=== PATIENT | female | born 1970 | race Caucasian/White ===

== ENCOUNTER 2018-04-20 14:50 | Emergency (ER) | payer MEDICAID ==
[~2018-04-20] VITALS: Ht 154.9 cm; Wt 49.0 kg
[2018-04-20 15:08] VITALS: BP 143/89; PULSE 92; RESP 20; Ht 154.9 cm; Wt 49.0 kg
[2018-04-20] MEDS ORDERED: IBUP-1542 PO (20:11)
--- NOTE | 2018-04-21 02:47 | ERD ---
ER Documentation Chief Complaint Chief Complaint c/o right foot pain x1 week, fell about a week ago HPI 47-year-old female presents for right ankle and foot pain times 1 week. She states that she was going down some steps and stepped the wrong way on the last step and twisted her ankle. Pain noted to be 9 out of 10. She states that the pain is worse with walking. There is swelling noted. She took some Advil and Tylenol at home which helped moderately with the pain. She denies fevers or chills. Denies chest pain or shortness of breath. No head trauma noted. ROS All systems reviewed and are negative except as per history of present illness. Medications Home Meds Active Scripts Ibuprofen* (Motrin*) 600 Mg Tab, 600 MG PO Q6H PRN for PAIN AND OR ELEVATED TEMP, #30 TAB Prov:DANISH LUNDY DO 04/20/18 PMhx/Soc Medical and Surgical Hx: pt denies Medical Hx, pt denies Surgical Hx Hx Alcohol Use: No Hx Substance Use: No Hx Tobacco Use: No Smoking Status: Never smoker Physical Exam Vitals Vital Signs Date Temp Pulse Resp B/P (MAP) Pulse Ox O2 O2 Flow FiO2 Time Delivery Rate 04/20/18 98.7 92 20 143/89 99 15:08 (107) Physical Exam Const: No acute distress Resp: Clear to auscultation bilaterally Cardio: Regular rate and rhythm, no murmurs, bilateral radial and dorsalis pedis pulses intact, cap refill less than 2 seconds in all toes of the right foot Abd: Soft, non tender, non distended. Normal bowel sounds Skin: No petechiae or rashes Back: No midline or flank tenderness Ext: Right ankle swelling noted, tenderness to palpation over the lateral malleoli area. There is decreased range of motion. Neur: Awake and alert, bilateral lower extremity sensation intact, sensation intact in all toes of the right foot Psych: Normal Mood and Affect Procedures/MDM Splint Note Type: Right posterior leg splint Location: Right foot Indication: Avulsion type fracture of the lateral cuboid Splint Assessment: Neurovascularly intact post splint placement with good fit. Medical Decision Making: Differential diagnosis includes but not limited to right ankle sprain, dislocation, fracture. Patient appeared well if his examination. There was right ankle swelling and tenderness palpation of the lateral malleolar area. Right ankle x-ray was unremarkable Right foot x-ray showed minimally-displaced avulsion type fracture at the lateral cuboid with adjacent soft tissue swelling. Right foot was placed in a posterior leg splint Patient also was provided with crutches Patient given prescription for Motrin for pain. Advised to follow with orthopedic surgery. Patient given information to follow- up with orthopedic surgery. Patient advised to follow up with PCP in 1-2 days. Patient advised to return to ED for new or worsening symptoms. Patient stable on discharge from the ED. Disclaimer: Inadvertent spelling and grammatical errors are likely due to EHR/dictation software use and do not reflect on the overall quality of patient care. Also, please note that the electronic time recorded on this note does not necessarily reflect the actual time of the patient encounter. Departure Diagnosis: Primary Impression: Foot fracture Condition: Fair Patient Instructions: Fracture, Foot Referrals: COMM[facility] YOU HAVE RECEIVED A MEDICAL SCREENING EXAM AND THE RESULTS INDICATE THAT YOU DO NOT HAVE A CONDITION THAT REQUIRES URGENT TREATMENT IN THE EMERGENCY DEPARTMENT. FURTHER EVALUATION AND TREATMENT OF YOUR CONDITION CAN WAIT UNTIL YOU ARE SEEN IN YOUR DOCTORS OFFICE WITHIN THE NEXT 1-2 DAYS. IT IS YOUR RESPONSIBILITY TO MAKE AN APPOINTMENT FOR FOLOW-UP CARE. IF YOU HAVE A PRIMARY DOCTOR --you should call your primary doctor and schedule an appointment IF YOU DO NOT HAVE A PRIMARY DOCTOR YOU CAN CALL OUR PHYSICIAN REFERRAL HOTLINE AT IF YOU CAN NOT AFFORD TO SEE A PHYSICIAN YOU CAN CHOSE FROM THE FOLLOWING [facility] [address] [facility] [address] [facility] [address] [facility] [facility] [address] [facility] [facility] [address] [facility] . [facility] Urgent Care 7 a.m.- 11 p.m. Every Day of the Week NO APPOINTMENT OR AUTHORIZATION NEEDED [facility] Hours: Mon-Fri 9:00 AM - 5:00 PM Additional Instructions: Llame al doctor MAANA y karin sakshi AMY PARA DENTRO DE 1-2 OSORIO.Dgale a la secretaria que nosotros le instruimos hacer esta amy.Avise o llame si boyle condicin se empeora antes de la amy. Regresa aqui si peor o no mejor. DANISH LUNDY DO Apr 21, 2018 02:47
== END 2018-04-20 20:31 | disposition home or self-care (01) ==
LOC: FTE 14:50
DX: S92.901A Unspecified fracture of right foot, initial encounter for closed fracture (principal); W10.8XXA Fall (on) (from) other stairs and steps, initial encounter; Y92.9 Unspecified place or not applicable
CPT/HCPCS: 29515; 73610; 73630; Z7502